=== PATIENT | male | born 1995 | race Caucasian/White ===

== ENCOUNTER 2020-07-04 10:11 | Emergency (ER) | payer SELFPAY ==
[2020-07-04 10:43] VITALS: BP 110/71; PULSE 63; RESP 16; TEMP 37.1; O2SAT 99; BMI 17.6
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
== END 2020-07-04 11:26 | disposition home or self-care (01) ==
PROVIDERS: Emergency Provider Emergency Medicine
DX: S76.011A Strain of muscle, fascia and tendon of right hip, initial encounter (principal); W10.9XXA Fall (on) (from) unspecified stairs and steps, initial encounter; M25.551 Pain in right hip; M25.552 Pain in left hip; Y93.9 Activity, unspecified; Y92.9 Unspecified place or not applicable; Y99.9 Unspecified external cause status; Z79.899 Other long term (current) drug therapy; F12.90 Cannabis use, unspecified, uncomplicated
CPT/HCPCS: 99283; 99284